=== PATIENT | male | born 2000 | race Caucasian/White ===

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

== ENCOUNTER → 2019-06-26 | Outpatient (REF) | payer BC ==
[~2019-06-26] MED LIST changes: +ZOFR4TAB14 PO; -ZOFR4TAB3 PO
[2019-06-26 17:30] LABS: BASO % 0.4 % (0.0-1.0); EOS # 0.2 10^3/uL (0.0-0.5); EOS % 2.3 % (0.0-3.0); HEMATOCRIT 41.9 % (42.0-52.0); HEMOGLOBIN 14.1 g/dl (13.5-17.5); LYMPH # 1.1 10^3/uL (1.5-5.0); LYMPH % 14.8 % (24.0-44.0); MEAN CORPUSCULAR HEMOGLOBIN 31.1 pg (27.0-33.0); MEAN CORPUSCULAR HGB CONC 33.7 g/dl (32.0-36.5); MEAN CORPUSCULAR VOLUME 92.3 fl (80.0-96.0); MONO # 0.9 10^3/uL (0.0-0.8); MONO % 12.6 % (0.0-5.0); NEUTROPHILS # 4.9 10^3/uL (1.5-8.5); NEUTROPHILS % 69.8 % (36.0-66.0); PLATELET COUNT, AUTOMATED 276 10^3/uL (150-450); RED BLOOD COUNT 4.54 10^6/uL (4.30-6.10); WHITE BLOOD COUNT 7.1 10^3/uL (4.0-10.0)
[2019-06-26 17:36] LABS: ALBUMIN 3.7 GM/DL (3.2-5.2); ALT/SGPT 20 U/L (12-78); BILIRUBIN,TOTAL 0.5 MG/DL (0.2-1.0); BLOOD UREA NITROGEN 15 MG/DL (7-18); C REACTIVE PROTEIN QUANTITATIV < 0.30 MG/DL (0.00-0.30); CALCIUM LEVEL 8.6 MG/DL (8.5-10.1); CARBON DIOXIDE LEVEL 31 MEQ/L (21-32); CHLORIDE LEVEL 104 MEQ/L (98-107); CREATININE FOR GFR 0.78 MG/DL (0.70-1.30); FERRITIN 148 NG/ML (26-388); GLUCOSE, FASTING 63 MG/DL (70-100); IRON (FE) 26 UG/DL (65-175); POTASSIUM SERUM 3.9 MEQ/L (3.5-5.1); RHEUMATOID FACTOR QUANT < 10.0 IU/ML (<15.0); SODIUM LEVEL 140 MEQ/L (136-145); TOTAL IRON BINDING CAPACITY 288 UG/DL (250-450)
[2019-06-26 19:01] LABS: ERYTHROCYTE SEDIMENTATION RATE 4 mm/hr (0-15)
== END ==
LOC: M LABDRAW1 16:27
PROVIDERS: ATTEND Physician Assistant
DX: M12.9 Arthropathy, unspecified (principal); D50.9 Iron deficiency anemia, unspecified; R53.83 Other fatigue

== ENCOUNTER 2020-02-03 17:26 | Emergency (ER) | payer BC ==
[~2020-02-03] VITALS: Ht 167.6 cm; Wt 60.1 kg
[2020-02-03 17:27] VITALS: BP 122/75
[2020-02-03] MEDS ORDERED: B-10TAB2 PO (17:35)
[2020-02-03] MEDS ORDERED: PARO20TA3 PO (17:35)
[2020-02-03] MEDS ORDERED: VIT D PO (17:35)
[2020-02-03 19:51] LABS: BASO # 0.1 10^3/uL (0.0-0.2); BASO % 0.4 % (0.0-1.0); EOS # 0.1 10^3/uL (0.0-0.5); EOS % 0.3 % (0.0-3.0); HEMATOCRIT 45.3 % (42.0-52.0); HEMOGLOBIN 15.2 g/dl (13.5-17.5); LYMPH # 2.6 10^3/uL (1.5-5.0); LYMPH % 15.4 % (24.0-44.0); MEAN CORPUSCULAR HEMOGLOBIN 30.5 pg (27.0-33.0); MEAN CORPUSCULAR HGB CONC 33.6 g/dl (32.0-36.5); MEAN CORPUSCULAR VOLUME 90.8 fl (80.0-96.0); MONO # 1.4 10^3/uL (0.0-0.8); MONO % 8.5 % (0.0-5.0); NEUTROPHILS # 12.4 10^3/uL (1.5-8.5); NEUTROPHILS % 74.7 % (36.0-66.0); PLATELET COUNT, AUTOMATED 286 10^3/uL (150-450); RED BLOOD COUNT 4.99 10^6/uL (4.30-6.10); WHITE BLOOD COUNT 16.6 10^3/uL (4.0-10.0)
--- NOTE | 2020-02-03 19:56 | REPVR ---
PROCEDURE INFORMATION: Exam: CT Head Without Contrast Exam date and time: 02/03/2020 7:32 PM Age: 20 years old Clinical indication: Other: Hands locking up; Additional info: Seizure like activity TECHNIQUE: Imaging protocol: Computed tomography of the head without contrast. Radiation optimization: All CT scans at this facility use at least one of these dose optimization techniques: automated exposure control; mA and/or kV adjustment per patient size (includes targeted exams where dose is matched to clinical indication); or iterative reconstruction. COMPARISON: No relevant prior studies available. FINDINGS: Brain: Normal. No hemorrhage. Unremarkable white matter. No mass effect. Ventricles: Normal. No ventriculomegaly. Bones/joints: Unremarkable. No acute fracture. Sinuses: Visualized sinuses are unremarkable. No fluid levels. Mastoid air cells: Visualized mastoid air cells are well aerated. Soft tissues: Unremarkable. IMPRESSION: No acute intracranial abnormality. Electronically signed by: Anu Colin On 02/03/2020 19:55:59 PM
[2020-02-03 20:16] LABS: CK-MB VALUE MASS 2.4 NG/ML (<3.6); CPK CREATINE PHOSPHOKINASE 269 U/L (39-308); MB/CK RELATIVE INDEX 0.89 (< OR =4); TROPONIN I < 0.02 NG/ML (< 0.10)
[2020-02-03 20:22] LABS: TOTAL 25(OH) VITAMIN D 29.3 NG/ML (30.0-100.0)
[2020-02-03 20:28] LABS: ERYTHROCYTE SEDIMENTATION RATE 1 mm/hr (0-15)
[2020-02-03 20:51] LABS: MAGNESIUM LEVEL 2.5 MG/DL (1.8-2.4)
--- NOTE | 2020-02-04 01:36 | ECGEPIP ---
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
[2020-02-10] MEDS ORDERED: VITAD1000T PO (18:41)
== END 2020-02-03 20:58 | disposition home or self-care (01) ==
LOC: M ED 17:26
DX: R56.9 Unspecified convulsions (principal); R74.8 Abnormal levels of other serum enzymes; I45.10 Unspecified right bundle-branch block; Z91.030 Bee allergy status; Z91.048 Other nonmedicinal substance allergy status

== ENCOUNTER 2020-02-10 16:14 | Inpatient (IN) | payer BC, SELFPAY ==
[~2020-02-10] VITALS: Ht 170.2 cm; Wt 59.1 kg
[~2020-02-10 16:14] MED LIST changes: +B-10TAB2 PO; +PARO20TA3 PO; +VIT D PO
[2020-02-10 16:48] LABS: HEMATOCRIT 42.1 % (42.0-52.0); HEMOGLOBIN 14.7 g/dl (13.5-17.5); MEAN CORPUSCULAR HEMOGLOBIN 31.5 pg (27.0-33.0); MEAN CORPUSCULAR HGB CONC 34.9 g/dl (32.0-36.5); MEAN CORPUSCULAR VOLUME 90.3 fl (80.0-96.0); PLATELET COUNT, AUTOMATED 298 10^3/uL (150-450); RED BLOOD COUNT 4.66 10^6/uL (4.30-6.10); WHITE BLOOD COUNT 13.8 10^3/uL (4.0-10.0)
[2020-02-10 17:14] LABS: AMPHETAMINES LEVEL URINE NEGATIVE (NEGATIVE); BARBITURATES URINE NEGATIVE (NEGATIVE); BENZODIAZEPINES URINE NEGATIVE (NEGATIVE); CANNABINOIDS URINE POSITIVE (NEGATIVE); COCAINE METABOLITE URINE NEGATIVE (NEGATIVE); METHADONE URINE NEGATIVE (NEGATIVE); OPIATES URINE NEGATIVE (NEGATIVE); PHENCYCLIDINE URINE NEGATIVE (NEGATIVE)
[2020-02-10 17:24] LABS: ACETAMINOPHEN LEVEL < 2.0 UG/ML (10.0-30.0); ALBUMIN 3.8 GM/DL (3.2-5.2); ALT/SGPT 19 U/L (12-78); BILIRUBIN,DIRECT 0.2 MG/DL (0.0-0.2); BILIRUBIN,TOTAL 0.3 MG/DL (0.2-1.0); BLOOD UREA NITROGEN 16 MG/DL (7-18); CALCIUM LEVEL 8.8 MG/DL (8.5-10.1); CARBON DIOXIDE LEVEL 26 MEQ/L (21-32); CHLORIDE LEVEL 109 MEQ/L (98-107); ETHYL ALCOHOL (ETHANOL) < 0.003 % (0.000-0.010); GLOMERULAR FILTRATION RATE > 60.0 (>60); GLUCOSE, FASTING 89 MG/DL (70-100); POTASSIUM SERUM 3.7 MEQ/L (3.5-5.1); SALICYLATE LEVEL 3.7 MG/DL (5.0-30.0); SODIUM LEVEL 140 MEQ/L (136-145); TOTAL PROTEIN 7.2 GM/DL (6.4-8.2)
[2020-02-10] MEDS ORDERED: IBUPROFEN 400MG TAB PO PRN (18:30)
[2020-02-10] MEDS ORDERED: MAALOX 30 ML SUSP *UDC PO PRN (18:30)
[2020-02-10] MEDS ORDERED: traZODone 50 MG TAB PO PRN (18:30)
[2020-02-10] MEDS ORDERED: MOM 30ML SUSPENSION UDC PO PRN (18:30)
[2020-02-10] MEDS ORDERED: LORazepam 2 MG TAB PO STA (18:37)
[2020-02-10] MEDS ORDERED: VITATAB73 PO (18:41)
[2020-02-10] MEDS ORDERED: D31000TA2 PO (18:41)
[2020-02-10 22:18] VITALS: BP 122/67
[2020-02-11 06:13] VITALS: BP 118/68
--- NOTE | 2020-02-11 09:45 | MHHPEPDOC ---
[facility] History & Physical History and Physical DATE OF ADMISSION: Feb 10, 2020 at 18:18 HPI: Kevin presents today for anxiety, He reports feeling stress from work and was admitted after saying he would hurt others on a hotline. He denies being in an inpatient psychiatric hospital, suicide attempts, or hearing voices. he generally denies any intention to harm himself or others.he is apologetic and fairly anxious during the discussion. He reports that he has no history of treatment other than a short history of being on Paxil. The patient reports that he doesn't have any significant psychiatric symptoms other than anxiety related to his work screening negative for MDD, bipolar and psychotic disorders. MEDICATIONS: Currently taking Paxil for anxiety FAMILY HISTORY: Patient notes a family history of mental health on his mothers side of the family. Objective Appearance: Well groomed. Well nourished. Cognition: Alert, Attentive, and Oriented to person, place, time. Thought Form: Linear and goal directed. Thought Content: No evidence of aggressive or homicidal ideation. No evidence of delusions. anxious. No evidence of suicidal ideation. No thoughts of self harm. Judgement: intact as evidenced by decision making in the recent past. Insight: good insight into symptoms and treatment options. Assessment F43.22 Adjustment disorder with anxiety Plan The patient is a 20-year-old man who presents after stating a suicidal statement. He will be observed for 48 hours at which time if he is no longer stating that he is suicidal and has no observed concerning behaviors he will be released. Observation will determine if there are any signs of depression. Patient is somewhat anxious about this experience. His length of stay is between 1-2 days. His treatment priorities are 1) risk for suicide and 2) ineffective coping. Will continue patients Paxil at this time with no alterations. Vital Signs Vital Signs Date Time Temp Pulse Resp B/P (MAP) Pulse Ox O2 Delivery O2 Flow Rate FiO2 02/11/20 06:13 97.7 59 12 118/68 (85) Room Air 02/10/20 22:18 100 Laboratory Data 24H Labs Laboratory Tests 2 02/10/20 16:30: Urine Opiates Screen NEGATIVE, Urine Methadone Screen NEGATIVE, Urine Barbiturates Screen NEGATIVE, Urine Phencyclidine Screen NEGATIVE, Urine Amphetamines Screen NEGATIVE, Urine Benzodiazepines Screen NEGATIVE, Urine Cocaine Metabolite Screen NEGATIVE, Urine Cannabinoids Screen POSITIVEH 02/10/20 16:33: Nucleated Red Blood Cells % (auto) 0.0, Anion Gap 5L, Glomerular Filtration Rate > 60.0, Calcium Level 8.8, Total Bilirubin 0.3, Direct Bilirubin 0.2, Aspartate Amino Transf (AST/SGOT) 26, Alanine Aminotransferase (ALT/SGPT) 19, Alkaline Phosphatase 70, Total Protein 7.2, Albumin 3.8, Albumin/Globulin Ratio 1.1, Thyroid Stimulating Hormone (TSH) 0.710, Salicylates Level 3.7L, Acetaminophen Level < 2.0L, Ethyl Alcohol Level < 0.003 CBC/BMP Laboratory Tests 02/10/20 16:33 Medications Scheduled Cholecalciferol (Vitamin D3) (Vitamin D3) 1,000 Unit Tablet, 1,000 UNITS PO DAILY, (Reported) Ferrous Sulfate (Ferrous Sulfate) 325 Mg Tab, 325 MG PO DAILY, (Reported) Paroxetine HCl (Paroxetine HCl) 20 Mg Tablet, 20 MG PO DAILY, (Reported) Vitamin B Complex (Vitamin B Complex) 1 Each Tablet, 1 TAB PO DAILY, (Reported) Allergies Coded Allergies: bee pollen (Verified Allergy, Unknown, 02/03/20) cobalt (Verified Allergy, Unknown, 02/03/20) nickel (Verified Allergy, Unknown, 02/03/20) Uncoded Allergies: DETERGENTS (Allergy, Intermediate, DETERGENTS & CLOROX - RASH, 11/19/12) XANDER NARANJO DO Feb 11, 2020 09:45
[2020-02-11] MEDS: PARoxetine 20MG TABLET PO SCH (10:07)
--- NOTE | 2020-02-11 13:05 | HPEPDOC ---
[facility] Medical History & Physical Date of Admission Feb 10, 2020 Date of Service: Feb 11, 2020 History and Physical CHIEF COMPLAINT: Admitted to inpatient mental health unit HISTORY OF PRESENT ILLNESS: 20-year-old male with past medical history anxiety and depression is admitted to inpatient mental health unit for suicidal ideation. Patient reportedly had an episode at work yesterday where he became very stressed and agitated, called the suicide hotline to prevent his problems and told them that he had intentions of hurting himself. Today, he reports it was a misunderstanding and he had no intentions of hurting himself or others. He denies any previous history of suicidal ideation/attempt. He reports he was trying to relieve his stress and get the pressure off his chest speaking with somebody and never contemplating hurting himself. He has no other complaints at this time, denies shortness of breath, chest pain, nausea, vomiting, diarrhea or constipation. 10 point review of system is negative except for above PAST MEDICAL HISTORY: 1. Anxiety. 2. Depression. PAST SURGICAL HISTORY: 1. None. SOCIAL HISTORY: Smoker. Social alcohol use. Occasional marijuana use FAMILY HISTORY: Negative for malignancy ALLERGIES: Please see below. HOME MEDICATIONS: Please see below. PHYSICAL EXAMINATION: VITAL SIGNS: Please see below. GENERAL: No distress HEENT: Normocephalic, atraumatic, moist mucous membranes NECK: Supple CARDIOVASCULAR EXAMINATION: S1, S2, no murmurs RESPIRATORY EXAMINATION: Clear to auscultation, no wheezing ABDOMINAL EXAMINATION: Soft, nontender, nondistended, positive bowel sounds EXTREMITIES: Range of motion intact SKIN: No rash NEUROLOGICAL EXAMINATION: Alert and oriented 3, no focal deficits PSYCHIATRIC EXAMINATION: Calm and cooperative LABORATORY DATA: See below. MICROBIOLOGY: Please see below. ASSESSMENT: 20-year-old male with past medical history of anxiety and depression is admitted to inpatient mental health unit for suicidal ideation. PLAN: 1. Suicidal ideation. - Management as per primary team Patient has no active medical issues at this time, please reconsult as needed. Vital Signs Vital Signs Date Time Temp Pulse Resp B/P (MAP) Pulse Ox O2 Delivery O2 Flow Rate FiO2 02/11/20 06:13 97.7 59 12 118/68 (85) Room Air 02/10/20 22:18 100 Laboratory Data Labs 24H Laboratory Tests 2 02/10/20 16:30: Urine Opiates Screen NEGATIVE, Urine Methadone Screen NEGATIVE, Urine Barbiturates Screen NEGATIVE, Urine Phencyclidine Screen NEGATIVE, Urine Amph etamines Screen NEGATIVE, Urine Benzodiazepines Screen NEGATIVE, Urine Cocaine Metabolite Screen NEGATIVE, Urine Cannabinoids Screen POSITIVEH 02/10/20 16:33: Nucleated Red Blood Cells % (auto) 0.0, Anion Gap 5L, Glomerular Filtration Rate > 60.0, Calcium Level 8.8, Total Bilirubin 0.3, Direct Bilirubin 0.2, Aspartate Amino Transf (AST/SGOT) 26, Alanine Aminotransferase (ALT/SGPT) 19, Alkaline Phosphatase 70, Total Protein 7.2, Albumin 3.8, Albumin/Globulin Ratio 1.1, Thyroid Stimulating Hormone (TSH) 0.710, Salicylates Level 3.7L, Acetaminophen Level < 2.0L, Ethyl Alcohol Level < 0.003 CBC/BMP Laboratory Tests 02/10/20 16:33 Home Medications Scheduled Cholecalciferol (Vitamin D3) (Vitamin D3) 1,000 Unit Tablet, 1,000 UNITS PO DAILY Ferrous Sulfate (Ferrous Sulfate) 325 Mg Tab, 325 MG PO DAILY Paroxetine HCl (Paroxetine HCl) 20 Mg Tablet, 20 MG PO DAILY Vitamin B Complex (Vitamin B Complex) 1 Each Tablet, 1 TAB PO DAILY Allergies Coded Allergies: bee pollen (Verified Allergy, Unknown, 02/03/20) cobalt (Verified Allergy, Unknown, 02/03/20) nickel (Verified Allergy, Unknown, 02/03/20) Uncoded Allergies: DETERGENTS (Allergy, Intermediate, DETERGENTS & CLOROX - RASH, 11/19/12) A-FIB/CHADSVASC A-FIB History Current/History of A-Fib/PAF?: No ISAAC PATTERSON MD Feb 11, 2020 13:05
[2020-02-11 17:41] VITALS: BP 129/72
[2020-02-11] MEDS ORDERED: hydrOXYzine 25 MG TAB PO PRN (18:00)
[2020-02-11] MEDS ORDERED: NICOTINE 21MG/24HR 1 EA TRANSDERMAL TD PRN (18:00)
[2020-02-12 06:48] VITALS: BP 114/61
[2020-02-12] MEDS: PARoxetine 20MG TABLET PO SCH (08:50)
--- NOTE | 2020-02-12 09:25 | MHDSPDOC ---
[facility] Discharge Summary Discharge Summary DATE OF ADMISSION: Feb 10, 2020 at 18:18 DATE OF DISCHARGE: Feb 12, 2020 at 13:16 DISCHARGE DIAGNOSES: See Problem list below REASON FOR ADMISSION: 20-year-old man is admitted after making concerning statements CONSULTANTS INVOLVED:[ None (basic hospitalist screening)] TREATMENT AND PROGRESS ON THE UNIT : Medication changes: resumed on home Paxil without incident Behavior on unit:. Observed friendly and amenable, with no suicidal ideation Treatment attendance: attended at times Notable issues on presentation: none State on discharge: [stable] DISCHARGE ASSESSMENT: The patient a 20 year old man, with likely adjustment reaction, presented to [facility], where they observe for 48 hours demonstrating no significant signs or symptoms and denying suicidal and homicidal ideation. Legal status considerations: The patient at the time of discharge did not meet criteria for involuntary admission/extension due to having a [normal] mental status exam, [fair] insight into the situation, They are engaged in the discharge process, as well as being friendly and amenable in behavioral control and havent been engaging in any observed concerning behavior or ideation recently. They decline voluntary extension/admission at this time and must be discharged in good litzy, as Im unable to make a case for holding the patient against their will. They may have historical risk factors of admissions and other interactions with psychiatry however, those are not modifiable from a clinical perspective. The patient will need to be discharged in good litzy. MENTAL STATUS EXAMINATION ON DISCHARGE: [General: Well dressed with good hygiene Speech: Spontaneous and fluid Thought processes: Linear and logical Thought content: Future orientated Abstract reasoning, and computation: Intact Description of associations: Intact Description of abnormal or psychotic thoughts:Denies any suicidal or homicidal ideation. Denies any auditory or visual hallucinations. Does not appear to be responding to internal stimuli. Does not appear to be endorsing any bizarre or paranoid ideation. Judgment: fair Insight: fair Orientation: Alert and orientated 3 Recent and remote memory: Intact Attention span and concentration: Intact Fund of knowledge: Adequate Mood: "okay" Affect: Euthymic with a full range] PLAN/FOLLOWUP ARRANGEMENTS: Follow up appointments made (PCP and MH in 5 days of D/C date) and safety plan completed. Safety Planning aspects completed prior to discharge [RN reviewed crisis hotline information and other aspects to empower patient to access care in interim before next appointment.] The amount of time spent in the coordination of care for this patient was approximately 30 minutes. Vital Signs/I&Os Vital Signs Date Time Temp Pulse Resp B/P (MAP) Pulse Ox O2 Delivery O2 Flow Rate FiO2 02/12/20 06:48 97.7 59 12 114/61 (78) Room Air 02/11/20 17:41 100 Medications Scheduled Cholecalciferol (Vitamin D3) (Vitamin D3) 1,000 Unit Tablet, 1,000 UNITS PO DAILY, (Reported) Ferrous Sulfate (Ferrous Sulfate) 325 Mg Tab, 325 MG PO DAILY, (Reported) Paroxetine HCl (Paroxetine HCl) 20 Mg Tablet, 20 MG PO DAILY, (Reported) Vitamin B Complex (Vitamin B Complex) 1 Each Tablet, 1 TAB PO DAILY, (Reported) Scheduled PRN Nicotine (Nicotine Patch) 21 Mg Patch.td24, 1 PATCH TD DAILYPRN PRN for NICOTINE WITHDRAWAL for 30 Days, #30 Allergies Coded Allergies: bee pollen (Verified Allergy, Unknown, 02/03/20) cobalt (Verified Allergy, Unknown, 02/03/20) nickel (Verified Allergy, Unknown, 02/03/20) Uncoded Allergies: DETERGENTS (Allergy, Intermediate, DETERGENTS & CLOROX - RASH, 11/19/12) Problems (1) Adjustment reaction, depressive, brief Status: Resolved Plan / VTE VTE Prophylaxis Ordered?: No XANDER NARANJO DO Feb 12, 2020 09:25
[2020-02-12] MEDS ORDERED: NICO21PAT TD (10:04)
== END 2020-02-12 13:16 | disposition home or self-care (01) | DRG 754 ==
LOC: M ED 16:14 → M ED INP 18:18 → M PSY 21:10
PROVIDERS: ADMIT Psychiatry & Neurology Addiction Medicine; ATTEND Psychiatry & Neurology Addiction Medicine
DX: F43.21 Adjustment disorder with depressed mood (principal); R45.851 Suicidal ideations; Z79.899 Other long term (current) drug therapy; Z88.8 Allergy status to other drugs, medicaments and biological substances; J30.1 Allergic rhinitis due to pollen; F41.9 Anxiety disorder, unspecified

== ENCOUNTER 2020-03-09 20:23 | Emergency (ER) | payer BC, SELFPAY ==
[~2020-03-09] VITALS: Ht 167.6 cm; Wt 60.1 kg
[~2020-03-09 20:23] MED LIST changes: +D31000TA2 PO; +NICO21PAT TD; +VITATAB73 PO
[2020-03-09] MEDS ORDERED: hydrOXYzine 25 MG TAB PO ONE (21:15)
[2020-03-09] MEDS ORDERED: HYDR-3363 PO (21:20)
== END 2020-03-09 21:46 | disposition home or self-care (01) ==
LOC: M ED 20:23
DX: F43.0 Acute stress reaction (principal); F41.9 Anxiety disorder, unspecified; F33.9 Major depressive disorder, recurrent, unspecified; F17.210 Nicotine dependence, cigarettes, uncomplicated; Z91.030 Bee allergy status; Z91.048 Other nonmedicinal substance allergy status

== ENCOUNTER → 2024-07-24 | Outpatient (CLI) | payer BC ==
[~2024-07-24] MED LIST changes: -D31000TA2 PO; +HYDR-3363 PO; +VITA100093 PO
[2024-07-24 12:31] LABS: BASO % 0.4 % (0.0-1.0); EOS # 0.2 10^3/uL (0.0-0.5); EOS % 3.1 % (0.0-3.0); HEMATOCRIT 46.3 % (42.0-52.0); HEMOGLOBIN 15.5 g/dl (13.5-17.5); LYMPH # 2.4 10^3/uL (1.5-5.0); LYMPH % 34.8 % (24.0-44.0); MEAN CORPUSCULAR HEMOGLOBIN 29.9 pg (27.0-33.0); MEAN CORPUSCULAR HGB CONC 33.5 g/dl (32.0-36.5); MEAN CORPUSCULAR VOLUME 89.4 fl (80.0-96.0); MONO # 0.7 10^3/uL (0.0-0.8); MONO % 9.6 % (2.0-8.0); NEUTROPHILS # 3.6 10^3/uL (1.5-8.5); PLATELET COUNT, AUTOMATED 354 10^3/uL (150-450); RED BLOOD COUNT 5.18 10^6/uL (4.30-6.10); WHITE BLOOD COUNT 6.8 10^3/uL (4.0-10.0)
[2024-07-24 12:38] LABS: FERRITIN 318.4 NG/ML (10.5-307.3)
[2024-07-24 12:41] LABS: ALBUMIN 3.9 G/DL (3.2-5.2); ALKALINE PHOSPHATASE 63 U/L (40-129); ALT/SGPT 20 U/L (7.0-40); AST/SGOT 14 U/L (<34); BILIRUBIN,TOTAL 0.6 MG/DL (0.3-1.2); BLOOD UREA NITROGEN 16 MG/DL (9-23); CALCIUM LEVEL 10.1 MG/DL (8.5-10.1); CARBON DIOXIDE LEVEL 29 MMOL/L (20-31); CHLORIDE LEVEL 105 MMOL/L (98-107); GLOMERULAR FILTRATION RATE > 60.0 (>60); GLUCOSE, FASTING 102 MG/DL (60-100); IRON (FE) 146 UG/DL (65-175); PERCENT SATURATION 54.3 % (19.7-50.0); POTASSIUM SERUM 4.8 MMOL/L (3.5-5.1); SODIUM LEVEL 142 MMOL/L (136-145); TOTAL IRON BINDING CAPACITY 269 UG/DL (250-425); TOTAL PROTEIN 7.3 G/DL (5.7-8.2)
== END ==
LOC: M PLALAB 07:29
PROVIDERS: ATTEND Registered Nurse
DX: D50.9 Iron deficiency anemia, unspecified (principal)

== ENCOUNTER → 2024-07-31 | Outpatient (CLI) | payer BC ==
[2024-07-31 10:07] LABS: THYROID STIMULATING HORMONE 1.601 uIU/ML (0.55-4.78)
[2024-07-31 10:11] LABS: THYROGLOBULIN ANTIBODY < 15.0 U/ML (<60.0)
[2024-08-03 09:32] LABS: INSULIN TOTAL2 13.3 uIU/mL (<=18.4)
== END ==
LOC: M PLALAB 07:56
PROVIDERS: ATTEND Registered Nurse
DX: R42 Dizziness and giddiness (principal)

== ENCOUNTER → 2024-08-29 | Outpatient (CLI) | payer BC | LOC: M EKG 09:23 | PROVIDERS: ATTEND Registered Nurse | DX: R42 Dizziness and giddiness (principal); R06.02 Shortness of breath ==

== ENCOUNTER → 2024-10-16 | Outpatient (CLI) | payer BC ==
[2024-10-16 11:07] LABS: BASO # 0.1 10^3/uL (0.0-0.2); BASO % 0.8 % (0.0-1.0); EOS # 0.2 10^3/uL (0.0-0.5); EOS % 3.4 % (0.0-3.0); HEMATOCRIT 47.3 % (42.0-52.0); HEMOGLOBIN 15.7 g/dl (13.5-17.5); LYMPH # 2.4 10^3/uL (1.5-5.0); LYMPH % 36.7 % (24.0-44.0); MEAN CORPUSCULAR HEMOGLOBIN 29.6 pg (27.0-33.0); MEAN CORPUSCULAR HGB CONC 33.2 g/dl (32.0-36.5); MEAN CORPUSCULAR VOLUME 89.1 fl (80.0-96.0); MONO # 0.7 10^3/uL (0.0-0.8); MONO % 10.6 % (2.0-8.0); NEUTROPHILS # 3.2 10^3/uL (1.5-8.5); PLATELET COUNT, AUTOMATED 376 10^3/uL (150-450); RED BLOOD COUNT 5.31 10^6/uL (4.30-6.10); WHITE BLOOD COUNT 6.5 10^3/uL (4.0-10.0)
[2024-10-16 11:10] LABS: ALT/SGPT 29 U/L (7.0-40); AST/SGOT 21 U/L (<34); BLOOD UREA NITROGEN 11 MG/DL (9-23); CALCIUM LEVEL 9.1 MG/DL (8.5-10.1); CARBON DIOXIDE LEVEL 30 MMOL/L (20-31); CHLORIDE LEVEL 105 MMOL/L (98-107); CHOLESTEROL LEVEL 183 MG/DL (<200); CHOLESTEROL RISK RATIO 3.78 (<5); CREATININE FOR GFR 0.79 MG/DL (0.70-1.30); GLOMERULAR FILTRATION RATE > 60.0 (>60); GLUCOSE, FASTING 83 MG/DL (60-100); HDL CHOLESTEROL 48.3 MG/DL (>40); LDL CHOLESTEROL 114.5 MG/DL (<100); NON-HDL-C 134.7 MG/DL; POTASSIUM SERUM 4.8 MMOL/L (3.5-5.1); SODIUM LEVEL 141 MMOL/L (136-145); TRIGLYCERIDES LEVEL 101 MG/DL (<150)
[2024-10-16 11:14] LABS: CPK CREATINE PHOSPHOKINASE 108 U/L (46-171)
== END ==
LOC: M PLALAB 07:19
PROVIDERS: ATTEND Internal Medicine Cardiovascular Disease
DX: R07.9 Chest pain, unspecified (principal)